=== PATIENT | female | born 1970 | race Caucasian/White ===

== ENCOUNTER → 2016-02-26 | Outpatient (CLI) | payer BC | LOC: BHSO 14:32 | DX: F33.41 Major depressive disorder, recurrent, in partial remission (principal) ==

== ENCOUNTER → 2016-06-01 | Outpatient (CLI) | payer BC | LOC: BHSO 15:21 | DX: F33.41 Major depressive disorder, recurrent, in partial remission (principal) ==

== ENCOUNTER → 2016-08-18 | Outpatient (CLI) | payer BC | LOC: BHSO 10:10 | DX: F33.41 Major depressive disorder, recurrent, in partial remission (principal) ==

== ENCOUNTER → 2016-09-27 | Outpatient (CLI) | payer BC | LOC: BHSO 15:38 | DX: F33.41 Major depressive disorder, recurrent, in partial remission (principal) ==

== ENCOUNTER → 2016-10-22 | Outpatient (CLI) | payer BC | LOC: BHSO 10:21 | DX: F33.41 Major depressive disorder, recurrent, in partial remission (principal) ==

== ENCOUNTER → 2017-01-21 | Outpatient (CLI) | payer BC | LOC: BHSO 09:56 | DX: F41.1 Generalized anxiety disorder (principal) ==

== ENCOUNTER → 2017-05-03 | Outpatient (CLI) | payer BC | LOC: BHSO 14:40 | DX: F41.1 Generalized anxiety disorder (principal) | CPT/HCPCS: G0463 ==

== ENCOUNTER → 2017-08-24 | Outpatient (CLI) | payer BC | LOC: MC.RAD 14:20 | DX: Z12.31 Encounter for screening mammogram for malignant neoplasm of breast (principal); Z80.3 Family history of malignant neoplasm of breast ==

== ENCOUNTER → 2017-09-02 | Outpatient (CLI) | payer BC | LOC: BHSO 10:03 | DX: F41.1 Generalized anxiety disorder (principal) | CPT/HCPCS: G0463 ==

== ENCOUNTER → 2018-03-24 | Outpatient (CLI) | payer BC | LOC: BHSO 14:56 | DX: F41.1 Generalized anxiety disorder (principal) | CPT/HCPCS: G0463 ==

== ENCOUNTER → 2018-10-06 | Outpatient (CLI) | payer BC | LOC: BHSO 15:55 | DX: F41.1 Generalized anxiety disorder (principal) | CPT/HCPCS: G0463 ==

== ENCOUNTER 2019-02-22 16:04 | Emergency (ER) | payer BC ==
[~2019-02-22] VITALS: Ht 165.1 cm; Wt 73.2 kg
[2019-02-22 16:09] VITALS: BP 143/81; PULSE 90; TEMP 97.5
== END 2019-02-22 18:08 | disposition left against medical advice (07) ==
LOC: COL.ER 16:04
DX: R07.89 Other chest pain (principal); F17.210 Nicotine dependence, cigarettes, uncomplicated

== ENCOUNTER → 2019-02-23 | Outpatient (CLI) | payer BC ==
[2019-02-23 11:37] LABS: BASO # 0.1 (0.0-0.2); BASO % 0.8 % (0.0-2.0); EOS # 0.1 (0.0-0.7); EOS % 0.8 % (0-4.0); GRAN # 5.1 (1.4-6.5); GRAN % 64.8 % (42.2-75.2); HEMOGLOBIN 15.5 g/dl (12.5-16.0); LYMPH % 25.5 % (20.0-51.0); MEAN CELL VOLUME 96 fl (80.0-100.0); MEAN CORPUSCULAR HEMOGLOBIN 32 pg (27.0-31.0); MEAN CORPUSCULAR HGB CONC 34 g/dl (33.0-37.0); MEAN PLATELET VOLUME 9.1 fl (7.4-10.4); MONO # 0.6 (0.1-0.6); PLATELET COUNT 278 K/mm3 (130-400); REDCELL DISTRIBUTION WIDTH-CV 12.1 % (11.5-14.5)
[2019-02-23 11:45] LABS: ALANINE AMINOTRANSFERASE 15 U/L (9-52); ALBUMIN 4.8 gm/dL (3.5-5.0); ALKALINE PHOSPHATASE 72 U/L (50-136); ANION GAP 11 mmol/L (7-16); AST,SGOT 31 U/L (15-37); BILIRUBIN,TOTAL 0.7 mg/dL (0.0-1.0); BLOOD UREA NITROGEN 8 mg/dL (7-17); CALCIUM 10.3 mg/dL (8.4-10.2); CARBON DIOXIDE 25 mmol/L (22-30); CHLORIDE 100 mmol/L (98-107); CREATININE, serum 0.69 (0.52-1.25); GLUCOSE 91 mg/dL (74-106); POTASSIUM 4.5 mmol/L (3.4-5.0); SODIUM 137 mmol/L (137-145); TOTAL PROTEIN 8.6 gm/dL (6.4-8.2)
[2019-02-23 12:03] LABS: TROPONIN-I < 0.012 ng/mL (0.000-0.035)
== END ==
LOC: COL.RAD 10:36
PROVIDERS: Nurse Practitioner Family
DX: Z01.812 Encounter for preprocedural laboratory examination (principal); R07.9 Chest pain, unspecified

== ENCOUNTER → 2019-03-22 | Outpatient (CLI) | payer BC | LOC: MC.RAD 15:30 | DX: Z12.31 Encounter for screening mammogram for malignant neoplasm of breast (principal); Z92.0 Personal history of contraception; N63.20 Unspecified lump in the left breast, unspecified quadrant ==

== ENCOUNTER → 2019-03-27 | Outpatient (CLI) | payer BC | LOC: MC.RAD 13:30 | DX: N63.21 Unspecified lump in the left breast, upper outer quadrant (principal) | CPT/HCPCS: G0279 ==

== ENCOUNTER → 2019-04-03 | Outpatient (CLI) | payer BC | LOC: MC.RAD 09:55 | DX: N63.21 Unspecified lump in the left breast, upper outer quadrant (principal); N63.22 Unspecified lump in the left breast, upper inner quadrant ==

== ENCOUNTER → 2019-04-04 | Outpatient (CLI) | payer BC | LOC: BHSO 14:34 | DX: F41.1 Generalized anxiety disorder (principal) | CPT/HCPCS: G0463 ==

== ENCOUNTER 2019-05-08 07:02 | Day surgery (SDC) | payer BC ==
[~2019-05-08] VITALS: Ht 167.6 cm; Wt 75.7 kg
[2019-05-08 08:10] VITALS: BP 157/87; PULSE 70; TEMP 97.9
[2019-05-08] MEDS ORDERED: PROZAC 20MG20 MG PO (08:12)
[2019-05-08] MEDS ORDERED: XANAX 0.5MG0.5 MG PO (08:13)
[2019-05-08] MEDS ORDERED: PROVENTIL0.09 MG/A1 IH (08:13)
[2019-05-08] MEDS ORDERED: SUDAFED30 MG PO (08:14)
[2019-05-08] MEDS ORDERED: CLARITIN 1010 MG/TAB PO (08:15)
[2019-05-08] MEDS ORDERED: EXCEDRIN1 TAB PO (08:16)
--- NOTE | 2019-05-08 10:25 | NUR ---
The patient was taken via wheelchair to Radiology for further imaging. Will continue to monitor the patient when she returns to the unit.
--- NOTE | 2019-05-08 15:45 | NUR ---
The patient denies any more nausea and has finished her water. She voices a desire to be discharged home.
--- NOTE | 2019-05-08 15:50 | NUR ---
Discharge instructions were reviewed with the patient at this time. She verbalized understanding and has no questions for the nurse at this time. The patient's IV to her right hand was removed and a pressure dressing was applied to the site. The nurse instructed the patient to get dressed and notify the staff when she is ready to be escorted out.
--- NOTE | 2019-05-08 16:00 | NUR ---
The patient was escorted out via wheelchair to a private vehicle by MARSHA Gold. The patient's belongings and discharge paperwork were sent with her. The patient's is present to drive her home.
[2019-05-08 16:25] VITALS: BP 149/77; PULSE 69; TEMP 98
--- NOTE | 2019-05-08 16:25 | NUR ---
The patient arrived back to [facility] from the recovery room at this time. Post operative vital signs were started at this time. The patient's steri strip/deng set dressing to her left breast appears clean, dry and intact. The patient requests to try some diet coke and saltine crackers. Call light is within reach. Will continue to monitor the patient.
[2019-05-08] MEDS ORDERED: ULTRAM 50MG TAB50 MG PO (16:35)
[2019-05-08 16:40] VITALS: BP 164/83; PULSE 70
--- NOTE | 2019-05-08 16:40 | NUR ---
The patient has appeared to tolerate the food and drink well. Vital signs appear stable. The patient ambulated to the bathroom with the stand by assistance of one nurse and appeared to tolerate the activity well. The patient voided without difficulty.
[2019-05-08 16:55] VITALS: BP 151/79; PULSE 71
--- NOTE | 2019-05-08 16:55 | NUR ---
Discharge instructions were reviewed with the patient at this time. She verbalized understanding and have no questions for the nurse at this time. The patient's IV to her right wrist was removed and a pressure dressing was applied to the site. The patient is dressed and ready to be escorted out.
--- NOTE | 2019-05-08 17:05 | NUR ---
The patient was escorted out via wheelchair to a private vehicle by MARSHA Gold. The patient's belongings and discharge paperwork were sent with her. The patient's boyfriend is present to drive her home.
== END 2019-05-08 17:05 | disposition home or self-care (01) ==
LOC: SDCO 07:02
DX: C50.212 Malignant neoplasm of upper-inner quadrant of left female breast (principal); Z17.0 Estrogen receptor positive status [ER+]; Z80.3 Family history of malignant neoplasm of breast; Z80.0 Family history of malignant neoplasm of digestive organs; F17.210 Nicotine dependence, cigarettes, uncomplicated; Z79.899 Other long term (current) drug therapy; J40 Bronchitis, not specified as acute or chronic; F32.9 Major depressive disorder, single episode, unspecified; F41.9 Anxiety disorder, unspecified
CPT/HCPCS: A9541; J0690; J1100; J2250; J2405; J2704; J3010; J7120

== ENCOUNTER → 2019-06-26 | Outpatient (CLI) | payer BC ==
[~2019-06-26] MED LIST: CLARITIN 1010 MG/TAB PO; EXCEDRIN1 TAB PO; PROVENTIL0.09 MG/A1 IH; PROZAC 20MG20 MG PO; SUDAFED30 MG PO; ULTRAM 50MG TAB50 MG PO; XANAX 0.5MG0.5 MG PO
== END ==
LOC: COL.RAD 08:53
DX: C50.212 Malignant neoplasm of upper-inner quadrant of left female breast (principal); M47.812 Spondylosis without myelopathy or radiculopathy, cervical region; S22.32XD Fracture of one rib, left side, subsequent encounter for fracture with routine healing; S22.31XD Fracture of one rib, right side, subsequent encounter for fracture with routine healing; S22.43XD Multiple fractures of ribs, bilateral, subsequent encounter for fracture with routine healing; I10 Essential (primary) hypertension
CPT/HCPCS: A9503

== ENCOUNTER → 2019-10-04 | Outpatient (CLI) | payer BC | LOC: BHSO 15:39 | DX: F41.1 Generalized anxiety disorder (principal) | CPT/HCPCS: G0463 ==

== ENCOUNTER → 2020-04-11 | Outpatient (CLI) | payer BC | LOC: MC.RAD 13:52 | DX: C50.212 Malignant neoplasm of upper-inner quadrant of left female breast (principal); I10 Essential (primary) hypertension; Z98.890 Other specified postprocedural states; Z92.3 Personal history of irradiation ==

== ENCOUNTER → 2021-06-15 | Outpatient (CLI) | payer BC | LOC: MC.RAD 14:11 | DX: Z12.31 Encounter for screening mammogram for malignant neoplasm of breast (principal); Z85.3 Personal history of malignant neoplasm of breast; Z98.890 Other specified postprocedural states; Z92.3 Personal history of irradiation ==

== ENCOUNTER → 2021-07-27 | Outpatient (CLI) | payer BC | LOC: MHCPAIN 15:30 | DX: M47.812 Spondylosis without myelopathy or radiculopathy, cervical region (principal); M54.12 Radiculopathy, cervical region; M54.2 Cervicalgia; G89.29 Other chronic pain | CPT/HCPCS: G0463 ==

== ENCOUNTER → 2022-03-19 | Outpatient (CLI) | payer BC | LOC: MHCPAIN 14:28 | DX: M25.511 Pain in right shoulder (principal); M77.11 Lateral epicondylitis, right elbow; M77.12 Lateral epicondylitis, left elbow; M25.531 Pain in right wrist | CPT/HCPCS: G0463; J3301 ==

== ENCOUNTER → 2023-06-20 | Outpatient (CLI) | payer BC | LOC: MC.RAD 07:15 | DX: Z12.31 Encounter for screening mammogram for malignant neoplasm of breast (principal); C50.212 Malignant neoplasm of upper-inner quadrant of left female breast; N64.89 Other specified disorders of breast ==